=== PATIENT | male | born 1985 | race Two or more races ===

== ENCOUNTER 2018-10-09 09:43 | Emergency (ER) | payer BC, OTHER ==
[~2018-10-09 09:43] MED LIST: ESOM40CA42 PO
[2018-10-09] MEDS ORDERED: DEXL60CA6 PO (09:55)
--- NOTE | 2018-10-09 10:11 | EKG ---
FACILITY: [facility] [place] PATIENT NAME: LIVAN SWARTZ : [id number] MR: [id number] V: [id number] EXAM DATE: ORDERING PHYSICIAN: DENIZ MCGARRY TECHNOLOGIST: ISAMAR Test Reason : CHEST PAIN Blood Pressure : / mmHG Vent. Rate : 077 BPM Atrial Rate : 077 BPM P-R Int : 136 ms QRS Dur : 094 ms QT Int : 366 ms P-R-T Axes : 029 062 005 degrees QTc Int : 414 ms Normal sinus rhythm Normal ECG No previous ECGs available Confirmed by DYLAN GOODWIN ([id number]) on 10/10/2018 6:40:46 AM Referred By: MALGORZATA Confirmed By:DYLAN GOODWIN
[2018-10-09 10:15] LABS: PLATELET COUNT, AUTOMATED 245 K/uL (150-450)
[2018-10-09] MEDS ORDERED: KETOROLAC 30 MG/ML VIAL IVP ONE (10:15)
--- NOTE | 2018-10-09 10:39 | RADIOLOGY IMAGING REPORT ---
FACILITY: [facility] PATIENT NAME: Silvestre Shaikh : 1985 MR: [id number] V: [id number] EXAM DATE: ORDERING PHYSICIAN: DENIZ MCGARRY TECHNOLOGIST: Location: [facility] Patient: Silvestre Shaikh : 1985 Visit/Account:[id number] Date of Sevice: 10/09/2018 Study: Frontal and lateral views of the chest Indication: Left-sided chest pain Comparison study: June 10, 2016 Findings: PA and lateral views of the chest demonstrate no evidence of acute infiltrate. There is no evidence of pleural effusion. There is no evidence of pneumothorax. The mediastinal, cardiac, and diaphragmatic contours are unremarkable. The visualized bony structures are unremarkable. IMPRESSION: Unremarkable chest. Report Dictated By: Xavier Freitas at 10/09/2018 10:34 AM Report E-Signed By: Xavier Freitas at 10/09/2018 10:35 AM WSN:[id number]
--- NOTE | 2018-10-09 13:29 | ER Report ---
History and Physical Time Seen By MD: 09:45 Hx. of Stated Complaint: STATES LEFT SIDED CHEST PAIN UNDER LEFT ARM THAT IS STABBING AROUND TO HIS BACK. STATES IT MAKES IT HARD TO BREATH. 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 His chest pain has been constant for 3 days. Not associated with shortness of breath. No PE or risk factors. No fever or chills. He denies cough. No abdominal pain. Allergies: Coded Allergies: No Known Drug Allergies (Verified , 10/09/18) Home Meds Reported Medications Dexlansoprazole (DEXILANT) 60 Mg Cap., 60 MG PO DAILY 10/09/18 Discontinued Reported Medications Esomeprazole Mag Trihydrate (Nexium) 40 Mg Capsule.dr, 40 MG PO QDAY, 0 Refills 08/11/10 Reviewed Nurses Notes: Yes Old Medical Records Reviewed: Yes Hx Smoking: Yes ( 13 YEARS 1PPD ) Smoking Status: Former Smoker Exposure to Second Hand Smoke?: No Hx Substance Use Disorder: No Hx Alcohol Use: No Constitutional Vital Sign - Last 24 Hours 10/09/18 10/09/18 10/09/18 10/09/18 09:46 10:00 10:30 11:00 Temp 97.6 Pulse 89 78 73 72 Resp 20 9 8 9 B/P (MAP) 117/66 107/71 (83) 110/83 (92) 110/79 (89) Pulse Ox 96 93 92 89 O2 Delivery Room Air 10/09/18 10/09/18 10/09/18 10/09/18 11:30 12:00 12:30 13:00 Pulse 71 69 74 73 Resp 12 15 15 7 B/P (MAP) 111/67 (82) 116/67 (83) Pulse Ox 90 88 94 94 10/09/18 10/09/18 10/09/18 10/09/18 13:20 13:25 13:30 13:33 Pulse 86 70 72 Resp 56 13 9 B/P (MAP) 113/84 (94) Pulse Ox 97 91 Physical Exam General Appearance: The patient is alert, has no immediate need for airway protection and no current signs of toxicity. Eyes: Pupils equal and round no injection. Respiratory: Chest is TTP at the left lateral area and left axilla, lungs are clear to auscultation. Cardiac: regular rate and rhythm Gastrointestinal: Abdomen is soft and non tender, no masses, bowel sounds normal. Neck: Neck is supple and non tender. Extremities have full range of motion and are non tender. Skin: No rashes or lesions. DIFFERENTIAL DIAGNOSIS: After history and physical exam differential diagnosis was considered for chest pain including but not limited to myocardial ischemia, pericarditis pulmonary embolus, chest wall pain, pleural inflammation and pulmonary infectious causes. Medical Decision Making Data Points Result Diagram: 10/09/18 0948 10/09/18 0948 Laboratory Hematology Test 10/09/18 09:48 10/09/18 12:36 Red Blood Count 5.96 M/uL (4.00-5.60) Mean Corpuscular Volume 95.3 fL (80.0-96.0) Mean Corpuscular Hemoglobin 32.3 pg (26.0-33.0) Mean Corpuscular Hemoglobin Concent 33.8 g/dL (32.0-36.0) Red Cell Distribution Width 13.4 % (11.5-14.5) Mean Platelet Volume 7.4 fL (7.2-11.1) Neutrophils (%) (Auto) 49.7 % (39.4-72.5) Lymphocytes (%) (Auto) 42.0 % (17.6-49.6) Monocytes (%) (Auto) 5.7 % (4.1-12.4) Eosinophils (%) (Auto) 1.7 % (0.4-6.7) Basophils (%) (Auto) 0.9 % (0.3-1.4) Nucleated RBC Relative Count (auto) 0.1 /100WBC Neutrophils # (Auto) 3.9 K/uL (2.0-7.4) Lymphocytes # (Auto) 3.3 K/uL (1.3-3.6) Monocytes # (Auto) 0.4 K/uL (0.3-1.0) Eosinophils # (Auto) 0.1 K/uL (0.0-0.5) Basophils # (Auto) 0.1 K/uL (0.0-0.1) Nucleated RBC Absolute Count (auto) 0.00 K/uL Sodium Level 140 mmol/L (137-145) Potassium Level 4.0 mmol/L (3.5-5.0) Chloride Level 102 mmol/L (98-107) Carbon Dioxide Level 30 mmol/L (22-30) Blood Urea Nitrogen 7 mg/dl (9-21) Creatinine 0.90 mg/dl (0.66-1.25) Glomerular Filtration Rate Calc > 60.0 Random Glucose 93 mg/dl (75-110) Calcium Level 9.5 mg/dl (8.4-10.2) Total Bilirubin 0.6 mg/dl (0.2-1.3) Aspartate Amino Transf (AST/SGOT) 43 U/L (0-35) Alanine Aminotransferase (ALT/SGPT) 39 U/L (0-56) Alkaline Phosphatase 70 U/L (0-126) Total Protein 8.2 g/dl (6.3-8.2) Albumin 4.7 g/dl (3.5-5.0) Troponin I < 0.012 ng/ml Chemistry Test 10/09/18 09:48 10/09/18 12:36 White Blood Count 7.8 k/uL (4.5-11.0) Red Blood Count 5.96 M/uL (4.00-5.60) Hemoglobin 19.2 g/dL (14.0-18.0) Hematocrit 56.8 % (42.0-52.0) Mean Corpuscular Volume 95.3 fL (80.0-96.0) Mean Corpuscular Hemoglobin 32.3 pg (26.0-33.0) Mean Corpuscular Hemoglobin Concent 33.8 g/dL (32.0-36.0) Red Cell Distribution Width 13.4 % (11.5-14.5) Platelet Count 245 K/uL (150-450) Mean Platelet Volume 7.4 fL (7.2-11.1) Neutrophils (%) (Auto) 49.7 % (39.4-72.5) Lymphocytes (%) (Auto) 42.0 % (17.6-49.6) Monocytes (%) (Auto) 5.7 % (4.1-12.4) Eosinophils (%) (Auto) 1.7 % (0.4-6.7) Basophils (%) (Auto) 0.9 % (0.3-1.4) Nucleated RBC Relative Count (auto) 0.1 /100WBC Neutrophils # (Auto) 3.9 K/uL (2.0-7.4) Lymphocytes # (Auto) 3.3 K/uL (1.3-3.6) Monocytes # (Auto) 0.4 K/uL (0.3-1.0) Eosinophils # (Auto) 0.1 K/uL (0.0-0.5) Basophils # (Auto) 0.1 K/uL (0.0-0.1) Nucleated RBC Absolute Count (auto) 0.00 K/uL Glomerular Filtration Rate Calc > 60.0 Calcium Level 9.5 mg/dl (8.4-10.2) Total Bilirubin 0.6 mg/dl (0.2-1.3) Aspartate Amino Transf (AST/SGOT) 43 U/L (0-35) Alanine Aminotransferase (ALT/SGPT) 39 U/L (0-56) Alkaline Phosphatase 70 U/L (0-126) Total Protein 8.2 g/dl (6.3-8.2) Albumin 4.7 g/dl (3.5-5.0) Troponin I < 0.012 ng/ml EKG/Imaging EKG Interpretation 12 lead EKG: Rhythm: normal sinus rhythm Erhard: normal QRS: normal ST segments: normal ED Course/Re-evaluation ED Course Normal EKG and chest x-ray. 2 separate troponins were normal as well. The patient has no risk factors for PE and no family history of early cardiac disease or cardiac . His symptoms are reproduced with palpation of the left chest wall. He is given Toradol with relief. Given his line of work, I think this is likely musculoskeletal. The patient is in agreement. I counseled him to continue with Tylenol or ibuprofen, and try to do as little heavy lifting as possible until his symptoms improve. Decision to Disposition Date: Oct 10, 2018 Decision to Disposition Time: 14:00 Depart Departure Latest Vital Signs Vital Signs Date Time Temp Pulse Resp B/P (MAP) Pulse Ox O2 Delivery O2 Flow Rate FiO2 10/09/18 13:33 113/84 (94) 10/09/18 13:30 72 9 91 10/09/18 09:46 97.6 Room Air Impression: Primary Impression: Chest pain Condition: Improved Disposition: HOME OR SELF-CARE Referrals: NASREEN DENNISON (PCP) Departure Forms: Medications Reconciliation, Patient Portal Information, ER Transition Record Patient Instructions: Chest Wall Pain (ED) Problem Qualifiers Primary Impression: Chest pain Chest pain type: intercostal pain Qualified Codes: R07.82 - Intercostal pain DENIZ MCGARRY MD Oct 09, 2018 13:29
[2018-10-09 13:33] VITALS: BP 113/84
== END 2018-10-09 13:37 | disposition home or self-care (01) ==
LOC: ER 10:18
DX: R07.9 Chest pain, unspecified (principal); Z87.891 Personal history of nicotine dependence
CPT/HCPCS: 71046; 84484; 85025; 93005; 96374; 99284; J1885; 82040; 82247; 82310; 82374; 82435; 82565; 82947; 84075; 84132; 84155; 84295; 84450; 84460; 84520